=== PATIENT | male | born 1980 | race American Indian/Alaskan Native ===

== ENCOUNTER 2017-08-23 10:18 | Emergency (ER) | payer OTHER ==
[2017-08-23 10:22] VITALS: BP 119/83; PULSE 76; TEMP 98.5; BMI 23.7
--- NOTE | 2017-08-23 11:32 | PDOC ---
History of Present Illness - General Chief Complaint: Back Pain Stated Complaint: LOWER BACK PAIN Time Seen by Provider: 08/23/17 11:07 History Source: Patient - History of Present Illness Occurred: reports: this morning Pain Location: reports: back Method of Injury: Yes: other Past History - Past Medical History Allergies/Adverse Reactions: Allergies Allergy/AdvReac Type Severity Reaction Status Date / Time No Known Allergies Allergy Verified 08/23/17 10:19 Home Medications: Ambulatory Orders NK [No Known Home Medication] 08/23/17 COPD: No - Immunization History Immunization Up to Date: Yes - Suicide/Smoking/Psychosocial Hx Smoking History: Never smoked Have you smoked in the past 12 months: No Hx Alcohol Use: No Drug/Substance Use Hx: No Substance Use Type: None Review of Systems - Review of Systems : No: Dysuria Musculoskeletal: Yes: Back Pain Neurological: No: Numbness, Tingling, Weakness *Physical Exam - Vital Signs Last Vital Signs Temp Pulse Resp BP Pulse Ox 98.5 F 76 18 119/83 100 08/23/17 10:20 08/23/17 10:20 08/23/17 10:20 08/23/17 10:20 08/23/17 10:20 - Physical Exam General Appearance: Yes: Appropriately Dressed. No: Apparent Distress HEENT: positive: Normal Voice Neck: negative: Supple Respiratory/Chest: negative: Respiratory Distress Musculoskeletal: positive: Normal Inspection, Vertebral Tenderness (over L lumbar paraspinal muscles). negative: CVA Tenderness Integumentary: positive: Dry, Warm Neurologic: positive: Fully Oriented, Alert, Normal Mood/Affect Medical Decision Making - Medical Decision Making 08/23/17 11:29 37-year-old male presenting with lower back pain in the setting of patient care this a.m. Patient works as a nurse assistant chief of police at [employer] and states while helping a patient to sit up in bed, he experienced non-radiating, sharp left lower back pain that has since improved, but states he feels "a funny feeling" in his back. Denies any lower extremity weakness, saddle anesthesia or bowel or bladder incontinence. Has not taking anything for pain. Patient states he was seen for back pain in the ER in 2013 and had MRI done which showed mild osteoarthritis, mild disc bulge to L4-L5 with mild spinal stenosis as per report in EMR. Pt s/p PT. Pt well-appearing and in no apparent distress with reproducible tenderness over left lumbar paraspinal muscles, no red flags at this time, i.e. cauda equina. Patient ambulatory in ED. Declines pain meds at this time. Stable for discharge with [id number] meds for pain and PMD follow-up as needed *DC/Admit/Observation/Transfer Diagnosis at time of Disposition: Low back pain Qualifiers: Chronicity: acute Back pain laterality: left Sciatica presence: without sciatica Qualified Code(s): M54.5 - Low back pain - Discharge Dispostion Disposition: HOME Condition at time of disposition: Good - Referrals Referrals: ON STAFF,NOT [Primary Care Provider] - - Patient Instructions Printed Discharge Instructions: Low Back Pain - Post Discharge Activity Forms/Work/School Notes: Back to Work
== END 2017-08-23 11:40 | disposition home or self-care (01) ==
LOC: JERFT 10:18
DX: M54.5 Low back pain (principal); X50.0XXA Overexertion from strenuous movement or load, initial encounter; Y93.F2 Activity, caregiving, lifting; Y92.230 Patient room in hospital as the place of occurrence of the external cause; Y99.0 Civilian activity done for income or pay
CPT/HCPCS: 99281-25

== ENCOUNTER 2019-08-14 09:44 | Emergency (ER) | payer OTHER ==
[2019-08-14 09:56] VITALS: BP 116/76; PULSE 85; TEMP 98.2; BMI 22.3
[2019-08-14] MEDS ORDERED: IBUPROFEN 400 MG TABLET (FP) PO ONE ×2 (10:36→10:41)
--- NOTE | 2019-08-14 10:41 | PDOC ---
History of Present Illness - General Chief Complaint: Injury Stated Complaint: LT LEG SPRAIN Time Seen by Provider: 08/14/19 10:33 History Source: Patient Exam Limitations: Clinical Condition - History of Present Illness Initial Comments: 08/14/19 10:37 Patient with no significant past medical history present with complaint of left calf muscle pain status post overstretching left leg while trying not to step on a piece of ice over an hour ago. Patient report he was stepping over the curb and so a piece of ice in trying to swerve it and overextended right leg. Patient reported hearing stretching sensation in the left calf muscle. Reported increased pain with ambulation to left calf muscle. Denies numbness, tingling sensation, weakness in left leg. Patient did not take anything for pain. Denies any swelling to left calf muscle Is this a multiple visit Asthma Patient?: No Timing/Duration: 1-3 hours Past History - Past Medical History Allergies/Adverse Reactions: Allergies Allergy/AdvReac Type Severity Reaction Status Date / Time No Known Allergies Allergy Verified 08/14/19 09:54 Home Medications: Ambulatory Orders Ibuprofen 600 mg PO Q8H PRN #12 tablet 08/14/19 Methocarbamol [Robaxin -] 500 mg PO BID PRN #10 tablet 08/14/19 COPD: No Other medical history: DENIES - Immunization History Immunization Up to Date: Yes - Psycho Social/Smoking Cessation Hx Smoking History: Never smoked Have you smoked in the past 12 months: No Hx Alcohol Use: No Drug/Substance Use Hx: No Substance Use Type: None Review of Systems - Review of Systems Able to Perform ROS?: Yes Is the patient limited Persian proficient: No Constitutional: No: Chills, Fever, Malaise HEENTM: No: Symptoms Reported Respiratory: No: Symptoms reported, See HPI, Cough, Orthopnea, Shortness of Breath, SOB with Exertion, SOB at Rest, Stridor, Wheezing, Productive cough, Hemoptysis, Other Cardiac (ROS): No: Symptoms Reported, See HPI, Chest Pain, Edema, Irregular Heart Rate, Lightheadedness, Palpitations, Syncope, Chest Tightness, Other ABD/GI: No: Symptoms Reported Musculoskeletal: Yes: Symptoms Reported, See HPI, Muscle Pain (left calf muscle pain). No: Joint Swelling Integumentary: No: Symptoms Reported, Bruising, Lumps Neurological: No: Symptoms reported, Numbness, Paresthesia, Tingling, Weakness All Other Systems: Reviewed and Negative *Physical Exam - Vital Signs Last Vital Signs Temp Pulse Resp BP Pulse Ox 98.2 F 85 18 116/76 100 08/14/19 09:54 08/14/19 09:54 08/14/19 09:54 08/14/19 09:54 08/14/19 09:54 - Physical Exam 08/14/19 10:40 GENERAL: Well developed, well nourished. Awake and alert in mild acute distress. PULMONARY: No evidence of respiratory distress. MUSCULOSKELETAL : Moderate point tenderness to right mid calf muscle. No bulging of abnormality seen on exam. Negative Homans sign. No tenderness to posterior popliteal fossa or Achilles tendon insertion site. No bony deformities EXTREMITIES: No cyanosis. No clubbing. No edema. Mild mid calf tenderness. SKIN: Warm and dry. Normal capillary refill. No bruising, ecchymosis or swelling to left calf area. NEUROLOGICAL: Alert, awake, appropriate. No motor deficits in the lower extremities. Gait is normal without ataxia. PSYCHIATRIC: Cooperative. Good eye contact. Appropriate mood and affect. General Appearance: Yes: Nourished, Appropriately Dressed, Mild Distress ED Treatment Course - RADIOLOGY Radiology Studies Ordered: Category Date Time Status LEG TIB/FIB-LEFT [RAD] Stat Radiology 08/14/19 10:36 Ordered Medical Decision Making - Medical Decision Making 08/14/19 10:38 Patient with no significant past medical history present with complaint of left calf muscle pain status post overstretching left leg while trying not to step on a piece of ice over an hour ago. Patient report he was stepping over the curb and so a piece of ice in trying to swerve it and overextended right leg. Patient reported hearing stretching sensation in the left calf muscle. Reported increased pain with ambulation to left calf muscle. Denies numbness, tingling sensation, weakness in left leg. Patient did not take anything for pain. Denies any swelling to left calf muscle Exam significant for moderate point tenderness to left mid calf muscle. No bulging to calf muscle. No swelling or ecchymosis to left calf muscle. No tenderness to posterior left knee or Achilles tendon insertion site. Negative Homans sign. Patient symptoms likely calf muscle strain. X-ray of left leg ordered to rule out acute pathology. Motrin 800 mg p.o. ordered for pain 08/14/19 11:08 X-ray of left leg shows no calf swelling or abnormality. Patient reported improvement in pain with Motrin. Patient stable for discharge on Motrin as needed for pain Robaxin for spasm with orthopedics follow-up Discharge - Discharge Information Problems reviewed: Yes Clinical Impression/Diagnosis: Leg pain, posterior Qualifiers: Laterality: left Qualified Code(s): M79.605 - Pain in left leg Strain of calf muscle Qualifiers: Encounter type: initial encounter Laterality: left Qualified Code(s): S86.812A - Strain of other muscle(s) and tendon(s) at lower leg level, left leg, initial encounter Condition: Stable Disposition: HOME - Admission No - Additional Discharge Information Prescriptions: Ibuprofen 600 mg PO Q8H PRN #12 tablet PRN Reason: pain Methocarbamol [Robaxin -] 500 mg PO BID PRN #10 tablet PRN Reason: spasm - Follow up/Referral Referrals: Bryson Zhao DO [Staff Physician] - - Patient Discharge Instructions Patient Printed Discharge Instructions: DI for Calf Muscle Strain Additional Instructions: leg x-ray shows no calf muscle rupture or tear abnormality. Your symptoms likely caused by muscle strain. Take prescribed Motrin and muscle relaxer as needed for pain. Apply warm compress to calf muscle as needed for pain. Follow -up referred to orthopedics specialist if symptoms persist for more than 3 days for possible MRI - Post Discharge Activity
== END 2019-08-14 11:20 | disposition home or self-care (01) ==
LOC: JERFT 09:44
DX: S86.112A Strain of other muscle(s) and tendon(s) of posterior muscle group at lower leg level, left leg, initial encounter (principal); X50.9XXA Other and unspecified overexertion or strenuous movements or postures, initial encounter; Y93.89 Activity, other specified; Y92.480 Sidewalk as the place of occurrence of the external cause; Y99.8 Other external cause status
CPT/HCPCS: 73590-TC-LT-FY; 99281-25

== ENCOUNTER 2021-04-02 07:36 | Emergency (ER) | payer OTHER ==
[2021-04-02 07:51] VITALS: BP 111/74; PULSE 64; TEMP 97.6; BMI 23.7
[2021-04-02] MEDS ORDERED: LIDOCAINE 5% TOPICAL PATCH TP ONE (08:10)
[2021-04-02] MEDS ORDERED: IBUPROFEN 600 MG TABLET (FP) PO ONE ×2 (08:10→08:14)
[2021-04-02] MEDS ORDERED: LIDOCAINE 5% TOPICAL PATCH ONE (08:14)
[2021-04-02] MEDS ORDERED: LIDOCAINE PATCH REMOVAL MC ONE (21:00)
== END 2021-04-02 08:49 | disposition home or self-care (01) ==
LOC: JER 07:36
DX: S39.012A Strain of muscle, fascia and tendon of lower back, initial encounter (principal); M54.42 Lumbago with sciatica, left side; X50.0XXA Overexertion from strenuous movement or load, initial encounter; Y93.F2 Activity, caregiving, lifting
CPT/HCPCS: 99283-25